=== PATIENT | male | born 1945 | race Two or more races ===

== ENCOUNTER 2018-05-26 21:07 | Emergency (ER) | payer OTHER ==
[~2018-05-26] VITALS: Ht 167.6 cm; Wt 63.5 kg
--- NOTE | 2018-05-26 21:43 | Emergency Room Report ---
History of Present Illness General Chief Complaint: General Complaint Source: EMS Present Illness HPI Patient presents with reports of dislodged feeding tube It was reported that there was an accidental withdrawal as the patient was being attempted to be fed There was a Dean catheter that was placed in monson Appears to be 16 Tr[place] Patient himself is nonverbal history of present illness remains limited however caretakers at bedside there was no other reports of vomiting or fever Allergies: Coded Allergies: No Known Allergies (Unverified , 05/26/18) Patient History Limited by: medical condition Past Medical History: see triage record Pertinent Family History: unable to obtain Reviewed Nursing Documentation: PMH: Agreed; PSxH: Agreed Nursing Documentation-PMH Hx Diabetes: Yes Hx Gastrointestinal Problems: Yes - gastrostimy Hx Cerebrovascular Accident: Yes - CVD unspec Review of Systems All Other Systems: limited - Other than the ones mentioned in the history of present illness all others are reviewed however they do stay limited due to the patient's mental status Physical Exam Vital Signs Date Time Temp Pulse Resp B/P (MAP) Pulse Ox O2 Delivery O2 Flow Rate FiO2 05/26/18 21:08 98.4 70 18 170/95 96 Nasal Cannula 2.0 Sp02 EP Interpretation: reviewed, normal General Appearance: no apparent distress Head: normocephalic, atraumatic Eyes: bilateral eye PERRL, bilateral eye EOMI ENT: normal pharynx Neck: supple Respiratory: lungs clear, no retraction Cardiovascular #1: regular rate, rhythm Gastrointestinal: non tender, soft, other - 16 [place] Dean cathet through stoma mild dried blood around the site no obvious expanding hematoma Musculoskeletal: other - Chronically debilitated Neurologic: responsive - To physical stimuli Skin: normal color Medical Decision Making Diagnostic Impression: Primary Impression: Encounter for care related to feeding tube Additional Impression: feeding tube replacement ER Course Upon arrival patient evaluated The Dean catheter was removed Area cleansed and prepped 16 [place] feeding tube placed through the stoma without any incidents balloon inflated KUB Gastrografin obtain afterwards and patient cleared for close outpatient follow-up Other X-Ray Diagnostic Results Other X-Ray Diagnostic Results : X-Ray ordered: kub # of Views/Limited Vs Complete: 1 View Indication: Other - tube placement Interpretation: no dislocation, no fractures, other - No extravasation Impression: Other - Tube appropriately placed, no extravasation Electronically Signed by: Ali Jamehdor, DO Last Vital Signs Date Time Temp Pulse Resp B/P (MAP) Pulse Ox O2 Delivery O2 Flow Rate FiO2 05/26/18 21:08 98.4 70 18 170/95 96 Nasal Cannula 2.0 Status: improved Disposition: XFER SNF Condition: Improved Additional Instructions: Patient is provided with the discharge instructions notified to follow up with primary doctor in the next 2-3 days otherwise return to the er with any worsening symptoms. Please note that this report is being documented using I-DISPO technology. This can lead to erroneous entry secondary to incorrect interpretation by the dictating instrument. Obdulia Grover DO May 26, 2018 21:43
[2018-05-26 21:45] VITALS: BP 170/95
--- NOTE | 2018-05-26 21:45 | NUR ---
ED Nurse Note: PT PALCED IN ROOM FROM HALLWAY, PT IS HERE FROM SNF WITH C/O G-TUBE OUT, MD AT BEDSIDE REPLACING, AMBULANCE WAITING TO TRANSFER PT BACK TO FACILITY, WAITING FOR KUB FOR PLACEMENT VERIFICATION THEN DISPO, NAD NOTED, PT FAMILY AT BEDSIDE.
[2018-05-26 22:35] VITALS: BP 156/88
--- NOTE | 2018-05-26 22:40 | NUR ---
ED Nurse Note: PT HAD X-RAY CONFIRMATION OF G-TUBE, IN PLACE AND BEING SENT BACK TO CARE FACILITY, [id number] HAS ARRIVED FOR PT TRANSPORT, REPORT CALLED TO JU - NURSE AT [facility] AT [phone], PT TAKEN VIA GURNEY, DONAVON NOTED, [employer]PER[employer]OR CARLOZ GIVEN PAPERS AND D/C INSTRUCTIONS, NAD NOTED DURING PT TRANSPORT.
[2018-05-26 22:45] VITALS: BP 156/88
--- NOTE | 2018-05-27 10:39 | Diagnostic Imaging Report ---
Indication: Post gastrostomy replacement Technique: Supine view of the abdomen after injection of water-soluble contrast into gastrostomy Comparison: none Findings: Contrast opacifies the stomach. No contrast extravasation is demonstrated. The bowel gas pattern is unremarkable. Impression: Satisfactory position of gastrostomy tube
== END 2018-05-26 22:55 ==
LOC: EDBD 21:07 → EMR 21:30
DX: Z43.1 Encounter for attention to gastrostomy (principal); E11.9 Type 2 diabetes mellitus without complications
CPT/HCPCS: 51702; 74018; 99284